=== PATIENT | male | born 1940 | race African-American/Black ===

== ENCOUNTER 2024-11-23 14:52 | Emergency (ER) | payer OTHER ==
[~2024-11-23] VITALS: Ht 170.2 cm; Wt 72.0 kg
[2024-11-23 14:57] VITALS: O2SAT 99
[2024-11-23] MEDS: ASPIRIN 325MG EC TABLET PO ONE (15:36)
[2024-11-23 16:37] LABS: CLARITY URINE CLEAR (CLEAR); COLOR URINE YELLOW (YELLOW); GLUCOSE URINE NEGATIVE (NEGATIVE); KETONES URINE NEGATIVE (NEGATIVE); LEUKOCYTE ESTERASE URINE NEGATIVE (NEGATIVE); NITRITE URINE NEGATIVE (NEGATIVE); OCCULT BLOOD URINE NEGATIVE (NEGATIVE); PROTEIN URINE NEGATIVE (NEGATIVE); SPECIFIC GRAVITY URINE 1.009 (1.005-1.030)
[2024-11-23 16:44] LABS: HEMATOCRIT. 34.7 % (42.0-52.0); HEMOGLOBIN. 11.8 g/dL (14.0-18.0); MEAN CORPUSCULAR HEMOGLOBIN 33.2 pg (28.0-32.0); MEAN CORPUSCULAR HGB CONC 34.1 g/dL (31.0-37.0); MEAN CORPUSCULAR VOLUME 97.3 fL (80.0-94.0); MEAN PLATELET VOLUME 9.9 fl (7.4-10.4); PLATELET 276 x1000/uL (130-400); RED BLOOD CELL COUNT 3.56 mill/uL (4.7-6.1); RED CELL DISTRIBUTION WIDTH 13.8 % (11.6-14.6); WHITE BLOOD COUNT 6.4 x1000/uL (4.5-11.0)
[2024-11-23 16:47] LABS: DIFFERENTIAL COMMENT 1
[2024-11-23 16:52] LABS: *AMPHETAMINES SCREEN URINE NEGATIVE (NEGATIVE); *BARBITURATES SCREEN URINE NEGATIVE (NEGATIVE); *BENZODIAZEPINES SCREEN URINE NEGATIVE (NEGATIVE); *COCAINE SCREEN URINE NEGATIVE (NEGATIVE); CANNABINOID URINE SCREEN PRESUMPTIVE POSITIVE (NEGATIVE); ECSTASY MDMA SCREEN URINE NEGATIVE (NEGATIVE); METHADONE URINE SCREEN NEGATIVE (NEGATIVE); OPIATES URINE SCREEN NEGATIVE (NEGATIVE); PHENCYCLIDINE URINE SCREEN NEGATIVE (NEGATIVE)
[2024-11-23 16:53] LABS: PROTHROMBIN TIME 10.9 sec (9.6-11.0)
[2024-11-23 16:54] LABS: CHLORIDE 102 mEq/L (98-107); POTASSIUM 3.2 mEq/L (3.5-5.1); SODIUM 141 mEq/L (136-145)
[2024-11-23 16:55] LABS: CALCIUM 9.4 mg/dL (8.7-10.4); CARBON DIOXIDE 28 mEq/L (21-32)
[2024-11-23 17:00] LABS: CREATININE 0.9 mg/dL (0.6-1.3); GLUCOSE 109 mg/dL (70-105); UREA NITROGEN BLOOD 6 mg/dL (9-23)
[2024-11-23 17:01] LABS: ETHANOL BLOOD < 10 mg/dL (<10)
[2024-11-23 17:03] LABS: PLATELET ESTIMATE NORMAL
[2024-11-23 21:38] VITALS: BP 136/80; PULSE 92; RESP 15; TEMP 36.7; O2SAT 99
== END 2024-11-23 22:30 | disposition short-term general hospital (02) ==
LOC: ER 15:12 → EDBEDREQ 20:16 → EDBEDREQTM 20:16 → ER 22:30
DX: I63.9 Cerebral infarction, unspecified (principal); R56.9 Unspecified convulsions; Z91.041 Radiographic dye allergy status
CPT/HCPCS: 36415; 71045; 80048; 80305; 80320; 81003; 83735; 85025; 93005; 99291; G0480